=== PATIENT | female | born 1940 ===

== ENCOUNTER 2021-05-27 23:53 | Emergency (ER) | payer MEDICARE ==
[~2021-05-27] VITALS: Ht 162.6 cm; Wt 80.3 kg
[2021-05-28] MEDS ORDERED: OMEP20ER PO (00:24)
[2021-05-28] MEDS ORDERED: LOSA50 PO (00:25)
[2021-05-28] MEDS ORDERED: MONT10T PO (00:25)
[2021-05-28] MEDS ORDERED: SYNTHROID75 MCG PO (00:25)
[2021-05-28] MEDS ORDERED: VERAPAMIL SR240 M1 PO (00:26)
== END 2021-05-28 03:35 | disposition home or self-care (01) ==
LOC: ER 23:53
DX: S42.211A Unspecified displaced fracture of surgical neck of right humerus, initial encounter for closed fracture (principal); I10 Essential (primary) hypertension; K21.9 Gastro-esophageal reflux disease without esophagitis; E03.9 Hypothyroidism, unspecified; Z79.899 Other long term (current) drug therapy; W18.30XA Fall on same level, unspecified, initial encounter
CPT/HCPCS: 29105; 73030; 96374; 96376; 99283-25; A9270; J3010

== ENCOUNTER 2021-05-30 13:13 | Inpatient (IN) | payer MEDICARE ==
[~2021-05-30] VITALS: Ht 162.6 cm; Wt 81.8 kg
[~2021-05-30 13:13] MED LIST: LOSA50 PO; MONT10T PO; OMEP20ER PO; SYNTHROID75 MCG PO; VERAPAMIL SR240 M1 PO
[2021-05-30] MEDS ORDERED: ACET500 PO (13:56)
[2021-05-30] MEDS ORDERED: LORA10ER PO (13:56)
--- NOTE | 2021-05-30 14:00 | NUR ---
Ambulatory in Day Surgery. History, Chart, Medications and Allergies reviewed before start of procedure. Lungs clear T/O to Auscultation. Patient confirms NPO status and agrees with scheduled surgery. Pre-Op teaching done. Pt verbalizes understanding.
--- NOTE | 2021-05-30 18:46 | NUR ---
arrival to unit pt arrived to unit at approx 1800. pt denied pain. she reports arm still numb, able to wiggle fingers cap refill <3. ppx4. able to feel sensation. aquacel to shoulder cdi and sling in place. [id number]. given water, jello, and crackers. tolerating well. educated pt leather sponger light and educated pt on need to call once pain begins in her arm. will hand off report to oncoming rn.
[2021-05-31 04:27] LABS: BASOPHILS ABSOLUTE AUTO 0.02 K/mm3 (0.00-0.23); BASOPHILS PERCENT AUTO 0 % (0-2); EOSINOPHILS PERCENT AUTO 0 % (0-6); Hematocrit 32.4 % (33.0-51.0); Hemoglobin 10.6 g/dL (11.5-16.0); IMMATURE GRAN ABSOLUTE AUTO 0.06 K/mm3 (0.00-0.10); IMMATURE GRAN PERCENT AUTO 1 % (0-1); LYMPHOCYTES ABSOLUTE AUTO 0.88 K/mm3 (0.84-5.20); LYMPHOCYTES PERCENT AUTO 7 % (21-46); MONOCYTES ABSOLUTE AUTO 0.57 K/mm3 (0.16-1.47); MONOCYTES PERCENT AUTO 5 % (4-13); Mean Corpuscular HGB 28.7 pg (26.0-34.0); Mean Corpuscular HGB Conc 32.7 g/dL (31.5-36.5); Mean Corpuscular Volume 88 fL (80-100); Mean Platelet Volume 9.1 fL (9.1-12.4); NEUTROPHILS ABSOLUTE AUTO 10.95 K/mm3 (1.96-9.15); NEUTROPHILS PERCENT AUTO 88 % (41-73); Platelet Count 331 K/mm3 (150-400); RDW Coefficient Variation 13.4 % (11.7-14.2); RDW Standard Deviation 42.8 fL (35.1-46.3); Red Blood Cell Count 3.69 M/mm3 (3.80-5.20); White Blood Cell Count 12.48 K/mm3 (4.00-11.30)
[2021-05-31 05:48] LABS: Anion Gap 11 mmol/L (6-16); Blood Urea Nitrogen 13 mg/dL (8-24); Bun/Creatinine Ratio 18.8 (12.0-20.0); CO2, Blood 22 mmol/L (21-32); Calcium, Blood 8.8 mg/dL (8.5-10.1); Chloride, Blood 108 mmol/L (98-108); Creatinine, Blood 0.69 mg/dL (0.40-1.00); Glomerular Filtration Rate >60 (60-); Glucose, Blood 117 mg/dL (70-99); Potassium, Blood 4.5 mmol/L (3.5-5.5); Sodium, Blood 141 mmol/L (136-145)
--- NOTE | 2021-05-31 07:15 | NUR ---
SHIFT SUMMARY POD1 R REVERSE TOTAL SHOULDER, A/O X4, VSS, TOLERATING PO, AMBULATING, VOIDING, PLEASANT AND COOPERATIVE c ALL NURSING CARE. DENIES PAIN T/O SHIFT, REPORTS SOME NUMBNESS STILL BUT GOOD PULSE AND CAP REFIL < 3 SECONDS, POLAR PACK IN PLACE T/O SHIFT. NO ACUTE EVENTS THIS SHIFT. CALL LIGHT IN REACH, REPORT GIVEN TO DAY RN.
--- NOTE | 2021-05-31 07:25 | NUR ---
0650-recvd report from previous RN Joshua. pt a/o x 4, pleasant/cooperative, denies pain, denies n/v. 5293-PT in working with patient
--- NOTE | 2021-05-31 08:42 | NUR ---
Petros SHEN in rounding with pt and pt's sister in law.
--- NOTE | 2021-05-31 09:51 | NUR ---
OT in room working with pt and family
--- NOTE | 2021-05-31 09:54 | NUR ---
05/31/21 0954 Rl Hernandez VERIFY:CHART LOT NUMBER [id number]
[2021-05-31] MEDS ORDERED: Percocet 5-3251 EACH PO (10:24)
--- NOTE | 2021-05-31 11:12 | NUR ---
provided pt and family with discharge instructions and printed material, which they state understanding of. Provided with written prescription for analgesia. Peripheral IV removed WNL. pt's belongings transferred to awaiting vehicle by family. Pt transferred to awaiting vehicle via wheelchair
== END 2021-05-31 11:04 | disposition home or self-care (01) | DRG 483 ==
LOC: SURS 13:13 → PRE IP 14:30 → SURS 17:59
PROVIDERS: ADMIT Orthopaedic Surgery
PROC: 0RRJ00Z Replacement of Right Shoulder Joint with Reverse Ball and Socket Synthetic Substitute, Open Approach (ICD-10-PCS; principal; 2021-05-30 14:30)
DX: S42.291A Other displaced fracture of upper end of right humerus, initial encounter for closed fracture (principal); W18.30XA Fall on same level, unspecified, initial encounter; K21.9 Gastro-esophageal reflux disease without esophagitis; I10 Essential (primary) hypertension; Z90.711 Acquired absence of uterus with remaining cervical stump; E03.9 Hypothyroidism, unspecified; Z98.890 Other specified postprocedural states; Z79.82 Long term (current) use of aspirin; Z79.899 Other long term (current) drug therapy; Z88.5 Allergy status to narcotic agent
CPT/HCPCS: 73030; 80048; 85025; 97110; 97162; 97165; 97535; A9270; C1776; J0690; J1100; J1885; J2250; J2370; J2405; J2704; J3010; J7120

== ENCOUNTER → 2021-12-05 | Outpatient (CLI) | payer MEDICARE ==
[~2021-12-05] MED LIST changes: +ACET500 PO; +LORA10ER PO; +Percocet 5-3251 EACH PO
[2021-12-05 12:48] LABS: Calcium, Urine 9.7 mg/dL (< 17.5); Calcium, Urine Calculation 116.4 mg/24hrs (42.0-353.0)
[2021-12-05 13:00] LABS: Creatinine Urine 69.9 mg/dL (27.00-270.00)
== END | disposition home or self-care (01) ==
LOC: LAB 07:00 → LAB SHORT 07:00
PROVIDERS: Internal Medicine Endocrinology, Diabetes & Metabolism
DX: M81.0 Age-related osteoporosis without current pathological fracture (principal)
CPT/HCPCS: 81050; 82340; 82570

== ENCOUNTER 2023-06-10 12:42 | Day surgery (SDC) | payer MEDICARE ==
[~2023-06-10] VITALS: Ht 162.6 cm; Wt 84.3 kg
[~2023-06-10 12:42] MED LIST changes: +Aspir 8181 MG PO; +B-100 COMPLEX100 MG PO; +CALCIUM 600 MG1 EA17 PO; +CALCIUM CARBONATE PO; +FERROUS SULFAT325 M3 PO; +FOLI1 PO; +LACTOBACILLUS RHAMNO PO; +LUTEIN10 MG PO; +ONDA8 PO; +VOLTAREN ARTHRI20 GM TOP
--- NOTE | 2023-06-10 13:22 | NUR ---
06/10/23 1322 Joslyn Ybarra AT [address]13 [address] AT 1314
[2023-06-10 14:34] VITALS: BP 135/67
== END 2023-06-10 14:32 | disposition home or self-care (01) ==
LOC: ORSCSDS 12:42
PROVIDERS: Ophthalmology
PROC: 08RJ3JZ Replacement of Right Lens with Synthetic Substitute, Percutaneous Approach (ICD-10-PCS; principal; 2023-06-10 14:00)
DX: H25.13 Age-related nuclear cataract, bilateral (principal); H21.81 Floppy iris syndrome; Z79.82 Long term (current) use of aspirin; Z79.899 Other long term (current) drug therapy; I10 Essential (primary) hypertension; K21.9 Gastro-esophageal reflux disease without esophagitis
CPT/HCPCS: J2001; J2250; J3010; J3301; J7040; V2632

== ENCOUNTER 2023-06-18 12:08 | Day surgery (SDC) | payer MEDICARE ==
[~2023-06-18] VITALS: Ht 162.6 cm; Wt 84.5 kg
[2023-06-18 13:50] VITALS: BP 135/82
== END 2023-06-18 14:06 | disposition home or self-care (01) ==
LOC: ORSCSDS 12:08
PROVIDERS: Ophthalmology
PROC: 08RK3JZ Replacement of Left Lens with Synthetic Substitute, Percutaneous Approach (ICD-10-PCS; principal; 2023-06-18 13:30)
DX: H25.12 Age-related nuclear cataract, left eye (principal); Z96.1 Presence of intraocular lens; I10 Essential (primary) hypertension; E03.9 Hypothyroidism, unspecified; Z79.899 Other long term (current) drug therapy; Z79.82 Long term (current) use of aspirin
CPT/HCPCS: J2250; J3010; J3301; J7040; V2632